=== PATIENT | female | born 1980 | race Caucasian/White ===

== ENCOUNTER 2017-08-07 13:25 | Emergency (ER) | payer OTHER ==
[~2017-08-07] VITALS: Ht 170.2 cm; Wt 81.5 kg
[~2017-08-07 13:25] MED LIST: IBUP600 PO; OXYC1SOL5 PO; PERI8.6T PO; PREN0.01 PO; VALT500T PO
[2017-08-07 13:29] VITALS: BP 113/63; PULSE 98; RESP 20; TEMP 98.5; O2SAT 99
[2017-08-07] MEDS ORDERED: BIRTH CONTROL PILL PO (13:39)
[2017-08-07] MEDS ORDERED: SODIUM CHLOR 0.9% 1000 ML INJ 1,000 ML IV SCH (13:41)
[2017-08-07] MEDS ORDERED: ONDANSETRON HCL 4 MG/2 ML VIAL IVP ONE (13:45)
[2017-08-07] MEDS ORDERED: SODIUM CHLORIDE 0.9% FLUSH 10 ML FLUSH IV FLUSH PRN (13:45)
[2017-08-07] MEDS ORDERED: DICYCLOMINE HCL 20 MG/2 ML VIAL IM ONE (13:45)
[2017-08-07] MEDS ORDERED: FAMOTIDINE 20 MG/2 ML VIAL IV PUSH ONE (13:45)
[2017-08-07 14:00] VITALS: RESP 16; O2SAT 100
--- NOTE | 2017-08-07 14:00 | PD ---
HPI Chief Complaint: GI Complaint Time Seen by Provider: 13:34 Travel History International Travel<30 days: No Contact w/Intl Traveler<30days: No Traveled to known affect area: No History of Present Illness HPI The patient is a 36-year-old female who presents emergency department for nausea, vomiting, diarrhea, and intermittent abdominal cramping. The patient's symptoms started last night. The patient states her daughter had symptoms earlier this week, her mother then had similar symptoms. Patient describes the diarrhea as loose, watery, brown, without any visible blood. She denies any recent international travel. Previous abdominal surgeries include section. She is currently on oral contraceptive pills, denies . Denies any dysuria. Symptoms are moderate, possibly exacerbated by recent exposure to similar symptoms from family members. [facility] Past Medical History Medical History: Denies Significant Hx Immunizations Current: Yes ?: Not LMP: 07/17/2017 : 1 Para: 1 : 0 Past Surgical History Section: Yes (X1) Oral Surgery: Yes (WISDOM TEETH REMOVED) Social History Alcohol Use: Yes (SOCIALLY) Tobacco Use: No (NEVER) Substance Use: No Allergies-Medications (Allergen,Severity, Reaction): Coded Allergies: No Known Allergies (Verified Adverse Reaction, Unknown, 08/07/17) Reported Meds & Prescriptions Reported Meds & Active Scripts Active Reported [ Control Pill] 1 Tab PO DAILY Review of Systems Except as stated in HPI: all other systems reviewed are Neg General / Constitutional: No: Fever Cardiovascular: No: Chest Pain or Discomfort Respiratory: No: Shortness of Breath Gastrointestinal: Positive: Nausea, Vomiting, Diarrhea, Abdominal Pain ( intermittent abdominal cramping) Genitourinary: No: Dysuria Musculoskeletal: No: Myalgias, Arthralgias Physical Exam Narrative GENERAL: Awake, alert, pleasant 36-year-old female who appears her stated age and is in no acute respiratory distress. SKIN: Focused skin assessment warm/dry. HEAD: Atraumatic. Normocephalic. EYES: No scleral icterus. ENT: No nasal bleeding or discharge. Dry mixed members. NECK: Trachea midline. No JVD. CARDIOVASCULAR: Regular rate and rhythm. No murmur appreciated. Heart rate in the 90s. GASTROINTESTINAL: Abdomen soft, non-tender, nondistended. Hepatic and splenic margins not palpable. MUSCULOSKELETAL: No obvious deformities. No clubbing. No cyanosis. No edema. NEUROLOGICAL: Awake and alert. No obvious cranial nerve deficits. Motor grossly within normal limits. Normal speech. PSYCHIATRIC: Appropriate mood and affect; insight and judgment normal. Data Data Last Documented VS Vital Signs Date Time Temp Pulse Resp B/P (MAP) Pulse Ox O2 Delivery O2 Flow Rate FiO2 08/07/17 14:09 70 16 116/58 (77) 100 Room Air 08/07/17 13:29 98.5 Orders Orders Comprehensive Metabolic Panel (08/07/17 13:41) Lipase (08/07/17 13:41) Iv Access Insert/Monitor (08/07/17 13:41) Ecg Monitoring (08/07/17 13:41) Oximetry (08/07/17 13:41) Ondansetron Inj (Zofran Inj) (08/07/17 13:45) Sodium Chlor 0.9% 1000 Ml Inj (Ns 1000 M (08/07/17 13:41) Sodium Chloride 0.9% Flush (Ns Flush) (08/07/17 13:45) Famotidine Inj (Pepcid Inj) (08/07/17 13:45) Dicyclomine Inj (Bentyl Inj) (08/07/17 13:45) Sodium Chlor 0.9% 1000 Ml Inj (Ns 1000 M (08/07/17 14:45) Labs Laboratory Tests Test 08/07/17 13:53 Blood Urea Nitrogen 15 MG/DL Creatinine 1.10 MG/DL Random Glucose 139 MG/DL Total Protein 7.8 GM/DL Albumin 3.7 GM/DL Calcium Level 8.5 MG/DL Alkaline Phosphatase 47 U/L Aspartate Amino Transf (AST/SGOT) 15 U/L Alanine Aminotransferase (ALT/SGPT) 17 U/L Total Bilirubin 0.6 MG/DL Sodium Level 138 MEQ/L Potassium Level 3.7 MEQ/L Chloride Level 104 MEQ/L Carbon Dioxide Level 24.4 MEQ/L Anion Gap 10 MEQ/L Estimat Glomerular Filtration Rate 57 ML/MIN Lipase 118 U/L MDM Medical Decision Making Medical Screen Exam Complete: Yes Emergency Medical Condition: Yes Medical Record Reviewed: Yes Interpretation(s) Laboratory Tests Test 08/07/17 13:53 Blood Urea Nitrogen 15 MG/DL Creatinine 1.10 MG/DL Random Glucose 139 MG/DL Total Protein 7.8 GM/DL Albumin 3.7 GM/DL Calcium Level 8.5 MG/DL Alkaline Phosphatase 47 U/L Aspartate Amino Transf (AST/SGOT) 15 U/L Alanine Aminotransferase (ALT/SGPT) 17 U/L Total Bilirubin 0.6 MG/DL Sodium Level 138 MEQ/L Potassium Level 3.7 MEQ/L Chloride Level 104 MEQ/L Carbon Dioxide Level 24.4 MEQ/L Anion Gap 10 MEQ/L Estimat Glomerular Filtration Rate 57 ML/MIN Lipase 118 U/L Differential Diagnosis Differential diagnosis includes gastroenteritis, food poisoning, viral syndrome , gastritis, enteritis, colitis, pyelonephritis, dehydration, acute kidney injury. Narrative Course IV was established, labs are drawn and sent, and the patient was placed on cardiac telemetry monitoring and continuous pulse oximetry monitoring. The patient was administered Zofran, Bentyl IM, and IV fluids. The patient's creatinine is elevated at 1.1, GFR is slightly low at 57, may be secondary to dehydration. The patient was reevaluated at 2:39 PM. The patient's symptoms had significantly improved. The patient tolerated leonela harriet without difficulty. She was administered a second liter of IV fluids. She will be discharged home with Zofran and Phenergan as needed, work excuse as needed, and follow-up with a primary physician. Return if symptoms worsen or progress. Diagnosis Primary Impression: Gastroenteritis Patient Instructions: General Instructions Additional Instructions: Please provide the patient a copy of her labs at discharge. Zofran and/or Phenergan as needed. Clear liquid diet and advance as tolerated. Work excuse for 2 days. Return if symptoms worsen or progress. Med/Other Pt SpecificInfo: Prescription(s) given Scripts Promethazine (Phenergan) 25 Mg Tablet 25 MG PO Q6H Y for NAUSEA OR VOMITING, #10 TAB 0 Refills Prov: Sunny Jones MD 08/07/17 Ondansetron Odt (Zofran Odt) 4 Mg Tab 4 MG SL Q6HR Y for Nausea/Vomiting, #10 TAB 0 Refills Prov: Sunny Jones MD 08/07/17 Disposition: 01 DISCHARGE HOME Condition: Stable Sunny Jones MD Aug 07, 2017 14:00
[2017-08-07 14:09] VITALS: BP 116/58; PULSE 70; RESP 16; O2SAT 100
[2017-08-07 14:18] LABS: CHLORIDE 104 MEQ/L (98-107); SODIUM (NA) 138 MEQ/L (136-145)
[2017-08-07 14:22] LABS: ALBUMIN 3.7 GM/DL (3.4-5.0); BICARBONATE 24.4 MEQ/L (21.0-32.0); BLOOD UREA NITROGEN 15 MG/DL (7-18); CALCIUM 8.5 MG/DL (8.5-10.1); GLUCOSE,RANDOM 139 MG/DL (74-106)
[2017-08-07 14:25] LABS: ALT (GPT) 17 U/L (10-53); AST (GOT) 15 U/L (15-37); GLOMERULAR FILTRATION RATE 57 ML/MIN (>89)
[2017-08-07 14:27] LABS: TOTAL BILIRUBIN ADULT 0.6 MG/DL (0.2-1.0); TOTAL PROTEIN 7.8 GM/DL (6.4-8.2)
[2017-08-07 14:28] LABS: ALKALINE PHOSPHATASE 47 U/L (45-117)
[2017-08-07] MEDS ORDERED: SODIUM CHLOR 0.9% 1000 ML INJ 1,000 ML IV ONE (14:45)
[2017-08-07] MEDS ORDERED: ZOFR4TAB3 SL (15:00)
[2017-08-07] MEDS ORDERED: PROM25TA10 PO (15:00)
[2017-08-07 15:49] VITALS: BP 118/58; RESP 16; O2SAT 98
[2017-08-07 16:05] VITALS: BP 101/56; PULSE 70; RESP 16; O2SAT 98
== END 2017-08-07 16:16 | disposition home or self-care (01) ==
LOC: PHED 13:25
DX: K52.9 Noninfective gastroenteritis and colitis, unspecified (principal); R10.9 Unspecified abdominal pain
CPT/HCPCS: 80053; 83690; 96361; 96372; 96374; 96375; 99284; J0500; J2405; J7030